=== PATIENT | male | born 1990 | race American Indian/Alaskan Native ===

== ENCOUNTER 2021-02-22 14:15 | Emergency (ER) | payer MEDICAID ==
[2021-02-22 14:41] VITALS: BP 143/99; PULSE 72
--- NOTE | 2021-02-22 15:20 | EDM.PDOCBH ---
ED HPI GENERAL MEDICAL PROBLEM - General Chief Complaint: Behavioral/Psych Stated Complaint: medication/PTSD Time Seen by Provider: 02/22/21 14:20 Source of Information: Reports: Patient History Limitations: Reports: No Limitations - History of Present Illness INITIAL COMMENTS - FREE TEXT/NARRATIVE: 30-year-old male presents to the ED in [place] department from [facility] for mental health issue. Patient is serving approximately 2 months stay in the [facility], patient has been followed by a therapist and psychiatrist for his mental health issues which include PTSD, night terrors, depression, anxiety. Patient has noticed that his medications are not controlling his symptoms. He was due for a medicine adjustment but was transferred from [facility] to [facility] which no longer has the mental health provider contract. Positive for: Increasing irritability, increasing agitation, restlessness. Negative for: Chest pain, shortness of breath trauma, syncope/near syncope, constipation/diarrhea, changes in urination smell, frequency volume, no red swollen painful joints, no difficulty swallowing no headache no difficulty swallowing, no fever. Psych negative for: Suicidal ideation, homicidal ideation, visual hallucinations, audio hallucinations. - Related Data Allergies Allergy/AdvReac Type Severity Reaction Status Date / Time venom-honey bee Allergy Hives Verified 11/23/12 16:26 Home Meds: Home Meds EPINEPHrine [Epipen] 0.3 mg IM BID PRN #2 pen 11/23/12 [Rx] Hydrocortisone Valerate [Westcort] 45 gm TP TID PRN #45 oint...g. 11/23/12 [Rx] Past Medical History - Past Health History Medical/Surgical History: Denies Medical/Surgical History Psychiatric History: Reports: Aggressive/Hostile Behaviors, Anxiety, Depression Social & Family History - Family History Family Medical History: Unobtainable - Tobacco Use Tobacco Use Status *Q: Never Tobacco User ED ROS GENERAL - Review of Systems Review Of Systems: Comprehensive ROS is negative, except as noted in HPI. ED EXAM, BEHAVIORAL HEALTH - Physical Exam Exam: See Below Text/Narrative:: ABC intact. No apparent distress. No obvious trauma. Speaking in full sentences. Alert and oriented x3, GCS 456. Exam Limited By: No Limitations General Appearance: Alert, WD/WN, No Apparent Distress Eye Exam: Bilateral Eye: EOMI, PERRL Ears: Normal External Exam, Hearing Grossly Normal Throat/Mouth: Normal Voice, No Airway Compromise Head: Atraumatic, Normocephalic Respiratory/Chest: No Respiratory Distress, Lungs Clear, Normal Breath Sounds, No Accessory Muscle Use, Chest Non-Tender Cardiovascular: Normal Peripheral Pulses, Regular Rate, Rhythm, No Edema, No Gallop, No JVD, No Murmur, No Rub GI/Abdominal: Soft, Non-Tender, No Distention, No Mass Extremities: Normal Inspection, No Pedal Edema Neurological: Alert, Normal Mood/Affect, Normal Cognition, Oriented x 3 Psychiatric: Alert, Normal Affect, Normal Cognition, Normal Mood, Oriented. No: Flat Affect, Incoherent, Restless, Tearful, Agitated, Disoriented, Inattentive, Poor Eye Contact, Uncooperative, Withdrawn, Flight of Ideas, Homicidal Thoughts, Adventism Delusions, Suicidal Plan, Suicidal Thoughts, Auditory Hallucinations, Visual Hallucinations, Pressured Speech, Paranoid Thoughts, Threatening Behavior Skin Exam: Warm, Dry, Intact, Normal color, No rash COURSE, BEHAVIORAL HEALTH COMP - Course Vital Signs: Last Vital Signs Temp 97.1 F 02/22/21 14:38 Pulse 72 02/22/21 14:38 Resp 16 02/22/21 14:38 BP 143/99 H 02/22/21 14:38 Pulse Ox 100 02/22/21 14:38 Departure - Departure Time of Disposition: 15:23 ([facility]) Disposition: DC/Tfer to Other 70 Condition: Good Clinical Impression: Irritability, Agitation Depression Qualifiers: Depression Type: unspecified Qualified Code(s): F32.A - Depression, unspecified - Discharge Information *PRESCRIPTION DRUG MONITORING PROGRAM REVIEWED*: No *COPY OF PRESCRIPTION DRUG MONITORING REPORT IN PATIENT KELLE: No Sepsis Event Note (ED) - Evaluation Sepsis Screening Result: No Definite Risk - Focused Exam Vital Signs: Vital Signs Temp Pulse Resp BP Pulse Ox 02/22/21 14:38 97.1 F 72 16 143/99 H 100 - Assessment/Plan Assessment:: 1. Agitation 2. Irritability 3. Depression 4. Anxiety Plan: 30-year-old male who presented to the ED with complaints of irritability, agitation, depression with long history of mental health followed in his previous incarcerated facilities no longer able to receive that given his new location. Patient was due for a medicine adjustment last week which did not occur due to his transfer to a new [facility]. Patient is concerned about his mental health, but it is getting worse. Patient is requesting help. Patient is currently on buspirone - 10mg tid for anxiety citalopram - 20mg daily depression/irritability -in general I do not adjust psych medications from the ER due to a lack of continuity of care, but given the patient's circumstance, safe and observed domicile with being on the low end dose for citalopram I am making an exception, changing patient's dose from 20 mg to 40 mg daily, patient education/shared decision making, patient understands that it may make his depression worse and return to the ED if that is the case, that full effect of the medication generally takes 5 weeks. prazosin - 2mg daily night terrors topiramate - 25mg migraines -Patient and/or sales representative sales manager understood and agreed to treatment plan. 1 additional 20 mg tablet today, two 20 mg tablets tomorrow, picker and sorter load and unload prescription at [facility] pharmacy on Wednesday which will be a 40 mg tablet. -All questions were answered to the patient's satisfaction. -Patient is discharged in stable condition. Patient to return to the ED if symptoms increase/return. Follow-up with behavioral health provider as soon as possible.
== END 2021-02-22 15:25 ==
LOC: LB.ED 14:15
DX: F32.A Depression, unspecified (principal); F41.9 Anxiety disorder, unspecified; R45.1 Restlessness and agitation; Z91.030 Bee allergy status
CPT/HCPCS: 99284